=== PATIENT | female | born 1965 | race Caucasian/White ===

== ENCOUNTER 2025-02-05 10:38 | Outpatient (AMB) | payer OTHER, SELFPAY ==
--- NOTE | 2025-02-05 11:04 | MHC.PC.OV ---
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 Intake Note: New patient visit Medication List - Last Reconciled 02/05/25 by Kaye Matias MD albuterol sulfate 90 mcg/actuation (Ventolin HFA) 2 puffs inhalation Q4H PRN alendronate 70 mg PO QWEEK sumatriptan succinate (Imitrex) take 1 tab at onset of headache; if no relief, may repeat 1 tab after at least 2 hrs; max = 2 tabs/24 hrs PO Tobacco use date assessed: 02/05/25 Dental Screening Dental Screen Date: 02/05/25 Did you have a dental visit in the last 12 months?: Yes Did you have a dental problem in the last 6 months where you did not have access to dental care?: No Was dental information given to patient?: Patient has dentist HPI HPI Comments History of Present Illness Details The patient is a 59 year old female with a past medical history of osteoporosis, hyperlipidemia, hypertension, GARCIA, asthma presenting for follow up Recent labs 12/2024 with LDL 170. Echo tomorrow. Coronary CT upcoming. Denies chest pain Osteoporosis: On fosamax Headaches: Rare use of imitrex Asthma: well controlled. rare albuterol. does need updated inhaler Colonoscopy UTD-due 2026 Mammo ordered [employer]DER-Dr Yash SOLORZANO CONSTITUTIONAL: Denies weight loss, fever and chills. HEENT: Denies changes in vision and hearing. RESPIRATORY: Denies SOB and cough. CV: Denies palpitations and CP GI: Denies abdominal pain, nausea, vomiting and diarrhea. : Denies dysuria and urinary frequency. MSK: Denies new myalgia and joint pain. SKIN: Denies rash and pruritus. NEUROLOGICAL: Denies headache PSYCHIATRIC: Denies recent changes in mood. PHYSICAL EXAM: GENERAL: Alert and oriented x 3. NAD EYES: EOMI. Anicteric. HENT: Moist mucous membranes. No scleral icterus. No cervical lymphadenopathy. LUNGS: Clear to auscultation bilaterally. CARDIOVASCULAR: Regular rate and rhythm. No murmur. No JVD. ABDOMEN: Soft, non-tender +bs EXTREMITIES: No edema. Non-tender. SKIN: No rashes or lesions. Warm. NEUROLOGIC: No focal neurological deficits. CN II-XII grossly intact PSYCHIATRIC: Cooperative. 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 1. Little interest or pleasure in doing things: not at all 2. Feeling down, depressed, or hopeless: not at all 3. Trouble falling or staying asleep, or sleeping too much: not at all 4. Feeling tired or having little energy: not at all 5. Poor appetite or overeating: not at all 6. Feeling bad about yourself - or that you are a failure or have let yourself or your family down: not at all 7. Trouble concentrating on things, such as reading the newspaper or watching television: not at all 8. Moving or speaking so slowly that other people could have noticed. Or the opposite - being so fidgety or restless that you have been moving around a lot more than usual: not at all 9. Thoughts that you would be better off or of hurting yourself in some way: not at all Total score: 0 Depression Screening Interpretation: Negative Depression Screening Done: Yes 36388 - PHQ-9 Billing: Yes Source: Developed by Drs. Shahid Lindquist, Ry Lara and colleagues, with an educational gisele from [employer]. Thrive Questionnaire Date Thrive assessed: 02/02/25 I am a: Patient What is your living situation today?: I have a steady place to live Within the past 12 months, did the food you bought not last and you didn't have the money to get more?: Never true Within the past 12 months, did you worry whether your food would run out before you got money to buy more?: Never true Do you have trouble paying for medicines?: No Do you have trouble getting transportation to medical appointments?: No Do you have trouble paying your heating and electricity bill?: No Do you have trouble taking care of your child, family member or friend?: No Do you have trouble with day-to-day activities such as bathing, preparing meals, shopping, managing finances, etc.?: No Are you currently unemployed and looking for a job?: No Are you interested in more education?: No Please select the resources that you would like help with: None Currently or been in a relationship where the following occur: No concerns reported THRIVE Score: 0 AUDIT C Alcohol Use Questionnaire (AUDIT-C) 1. How often do you have a drink containing alcohol?: 2-4 times a month 2. How many drinks containing alcohol do you have on a typical day when you are drinking?: 1 or 2 3. How often do you have six or more drinks on one occasion?: Never Total Score: 2 MELY-7 AMB Questionnaire MELY-7 Date MELY - 7 assessed: 02/05/25 Feeling nervous, anxious, or on edge: 1 = Several days Not being able to stop or control worryin = Not at all Worrying too much about different things: 0 = Not at all Trouble relaxin = Not at all Being so restless that it is hard to sit still: 0 = Not at all Becoming easily annoyed or irritable: 0 = Not at all Feeling afraid as if something awful might happen: 0 = Not at all Total MELY-7 score (0-4 normal; 5-9 mild; 10-14 moderate; 15-21 severe): 1 Source: Developed by Drs. Shahid Lindquist, Ry Lara and colleagues, with an educational gisele from [employer]. MELY-7 Assessment Billing MELY-7 Assessment Tool: MELY-7 Assessment 87942 Physical exam (Primary Care) Vital Signs: Last Vital Signs Pulse 83 02/05/25 11:09 Resp 14 02/05/25 11:09 BP 126/88 02/05/25 11:09 Pulse Ox 98 02/05/25 11:09 Oxygen Delivery Method Room Air 02/05/25 11:09 BMI result Body Mass Index 27.3 Tobacco/Smoking Status: Tobacco use Status Tobacco use date assessed 02/05/25 02/05/25 11:12 Patient Tobacco Use Status Never used Tobacco 02/05/25 11:18 e-Cigarette/Vaping Use Never Used 02/05/25 11:12 PHQ-9: PHQ-9 Score PHQ-9: Total score 0 02/05/25 11:20 Depression Screening Interpretation: Negative Thrive Assessment: Date of Thrive Assessment Date Thrive assessed 02/02/25 02/05/25 11:05 Currently or been in a relationship where the following occur: No concerns reported Coding Level of Care Code Est Pt Level 4 (15424) Diagnoses Hyperlipidemia, unspecified hyperlipidemia type E78.5 Hyperlipidemia type: unspecified Mild intermittent asthma without complication J45.20 Asthma complication type: uncomplicated Additional Codes MELY-7 Assessment Billing - MELY-7 Assessment Tool: MELY-7 Assessment 86190 ([id number]) PHQ-9 - 07116 - PHQ-9 Billing: Yes ([id number]) Assessment & Plan Assessment & Plan (1) Hyperlipidemia: Code(s): E78.5 - Hyperlipidemia, unspecified Category: Medical Qualifiers: Hyperlipidemia type: unspecified Qualified Code(s): E78.5 - Hyperlipidemia, unspecified (2) Mild intermittent asthma: Code(s): J45.20 - Mild intermittent asthma, uncomplicated Category: Medical Qualifiers: Asthma complication type: uncomplicated Qualified Code(s): J45.20 - Mild intermittent asthma, uncomplicated Plan 59 year old to reestablish care Interval history reviewed Chronic medical conditions stable Due for mammo-ordered. Follow up for CPE Orders: Orders MM screening mammo BI Today Z12.31 - Encounter for screening mammogram for malignant neoplasm of breast Medications: New albuterol sulfate 90 mcg/actuation (Ventolin HFA) 2 puffs inhalation Q4H PRN 8.5 grams 3RF shortness of breath or wheezing
[2025-02-05 11:09] VITALS: BP 126/88; PULSE 83; RESP 14; O2SAT 98; BMI 27.3
--- OUTSIDE RECORDS SUMMARY | 2025-02-05 12:47 | XMS_ITS | Patient Health Record ---
[facility] Address [address] [place] [address] Care Team Providers Care Web Content Producer Name Role Phone Kaye Crowley MD Primary Care Provider Nieves Rojas Unavailable [phone] Allergies No Known Allergies Reason For Referral No Information Medications Medication SIG (Take, Route, Frequency, Duration) Notes Start Date End Date Status Robaxin Not-Taking Imitrex Active Feldene 20 MG 1 capsule with food Orally Once a day for 30 day(s) 12/30/2020 Not-Taking Diclofenac Sodium 50 MG 1 tablet Orally Twice a day for 30 day(s) 05/05/2021 Not-Taking Immunizations Vaccine Route Administration Date Status Comme nts COVID-19 Pfizer BioNTech Vaccine Unknown 11/09/2020 Administered Second Dose: 12/02/2020 COVID-19 Pfizer BioNTech Vaccine Unknown 11/11/2020 Administered Social History Tobacco Use: Social History Observation Description Date Details (start date - stop date) Never Smoker NA - NA Tobacco Use/Smoking Question Answer Notes Are you a: nonsmoker Additional Findings: Tobacco Non-User Aggressive non-smoker Alcohol Screen Question Answer Notes Did you have a drink containing alcohol in the p ast year? Yes Points 0 Interpretation Negative Tobacco use other than smoking: Question Answer Notes Are you an other tobacco user? 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) Active confirmed Plan Of Treatment Pending Test Test Name Order Date 39108, J0702- Neuroma/Injection 02/19/20 27020, J0702- Neuroma/Injection 04/07/20 08524, J0702- Neuroma/Injection 05/05/20 Insurance Providers Payer Name Payer Address Payer Phone Subscriber Number Group Number Insured Name Patient Relationship to Insured Coverage Start Date Coverage End Date [facility] [address] [place] [id number] Jillian Kennedy Self - patient is the insured Medical (General) History Medical History History ICD Code asthma Headaches Lyme disease Measles Mumps Chicken pox Surgical History Surgery Date(Month/Year)
--- OUTSIDE RECORDS SUMMARY | 2025-02-05 12:47 | XMS_ITS | Clinical Summary ---
Author Organization [facility] Address [address] [place] [address] Care Team Providers Care Health Inspector Name Role Phone Kaye Matias MD Primary Care Provider [phone] Social History Tobacco Use Types Packs/Day Years Used Date Smoking Tobacco: Never Smokeless Tobacco: Never Alcohol Use Standard Drinks/Week Comments Yes 0 (1 standard drink = 0.6 oz pur e alcohol) Comments Unknown Sex and Gender Information Value Date Recorded Sex Assigned at Not on file Legal Sex Female 6:28 PM EST Gender Identity Not on file Sexual Orientation Not on file Obstetrics History Last Filed Vital Signs Vital Sign Reading Time Taken Comments Blood Pressure 112/81 02/03/2023 7:57 AM EDT Sit ting L Arm Pulse 81 02/03/2023 7:57 AM EDT Temperature - - Respiratory Rate - - Oxygen Saturation - - Inhaled Oxygen Concentration - - Weight 79.8 kg (176 lb) 02/03/2023 7:57 AM EDT Height - - Body Mass Index - - Plan of Treatment Health Maintenance Due Date Last Done Comments DTaP,Tdap,and Td Vaccines (1 - Tdap) 1982 Cervical Cancer Screening: Pap Smear 1984 Pneumococcal Vaccine: 50+ Years (1 of 1 - PCV) 2013 Zoster Vaccines (1 of 2) 2013 Colorectal Cancer Screening: Colonoscopy 10/27/2022 Depression Screening 10/27/2022 HIV Screening 10/27/2022 Hepatitis C Screening 10/27/2022 Social Influencers of Health Screening 10/27/2022 COVID-19 Vaccine ( season) 2024 Influenza Vaccine (#1) 2024 Breast Cancer Screening 03/02/2026 03/02/20 24, 10/27/2022, 10/01/2021, Additional history exists RSV Immunization Patients 60+ Years Old (1 - 1-dose 75+ series) 2038 HIB Vaccines Aged Out No longer eligi ble based on patient's age to complete this topic HPV Vaccines Aged Out No longer eligi ble based on patient's age to complete this topic Hepatitis A Vaccines Aged Out No long er eligible based on patient's age to complete this topic Hepatitis B Vaccines Aged Out No long er eligible based on patient's age to complete this topic IPV Vaccines Aged Out No longer eligi ble based on patient's age to complete this topic MMR Vaccines Aged Out No longer eligi ble based on patient's age to complete this topic Meningococcal ACWY Vaccine Aged Out N o longer eligible based on patient's age to complete this topic Meningococcal B Vacine Aged Out No lo nger eligible based on patient's age to complete this topic Pneumococcal Vaccine: Pediatrics (0 to 5 Years) and At-Risk Patients (6 to 64 Years) Aged Out No longer eligible based on patient's age to complete this topic RSV Immunization Patients Under 20 months Aged Out No longer eligible based on patient's age to complete this topic Varicella Vaccines Aged Out No longer eligible based on patient's age to complete this topic Procedures Procedure Name Priority Date/Time Associated Diagnosis Comments [facility] SCREENING DIGITAL Routine 03/02/2024 1:08 PM EDT Encounter for screening mammogram for malignant neoplasm of breast from Last 3 Months or Most Recently Relevant to Health Maintenance Results * [facility] SCREENING DIGITAL (03/02/2024 1:08 PM EDT) Anatomical Region Laterality Modality Mammography 03/02/2024 7:49 AM EDT Narrative 03/02/2024 1:08 PM EDT [facility] Diagnostic Imaging Department [address] [place] [id number] Patient: ??JILLIAN KENNEDY ?/Age/Sex: 1965 - 58 - F Unit#: ??[id number] ? Location/Status: ??SPDIMAM/REG CLI ? Mnemonic/Ordering Site: ??DIGSC/SPMAM Ordering Physician: ??FELIPE VANESSA MD [facility] Screening Digital - 03/02/24 - 803 Report Status:Signed EXAM: [facility] Screening Digital EXAM DATE AND TIME: 03/02/2024 8:05 AM HISTORY: ??Screening. COMPARISON: ??10/27/22, 10/01/21, 06/08/18 TECHNIQUE: Bilateral digital breast tomosynthesis was performed in the CC and MLO projections. Computer aided detection with PPLCONNECT 3D 3.1 was employed. TISSUE DENSITY: c. The breasts are heterogeneously dense, which may obscure small masses. FINDINGS: No suspicious masses, grouped microcalcifications, or areas of architectural distortion are seen. The skin and vascularity are unremarkable. IMPRESSION: Stable mammographic appearance of the breasts. ??No evidence of malignancy is seen. A negative mammogram in the presence of a clinically suspicious palpable abnormality does not preclude the possibility of malignancy or alter the indications for biopsy. BI-RADS: ??Category 1: Negative RECOMMENDATION(S): 1: Routine screening mammogram BILATERAL in 1 year. Dictating Physician: ??SHARI BENNETT MD Electronically Signed by: ??SHARI BENNETT MD Dic Date/Time: ??03/02/24 1307 Sign date/Time: ??03/02/24 1308 Procedure Note Shari Bennett MD - 07/02/2024 [facility] Diagnostic Imaging Department [address] [place] [address] Patient: JILLIAN KENNEDY Raul /Age/Sex: 1965 - 58 - F Unit#: [id number] Location/Status: SPDIMAM/REG CLI Mnemonic/Ordering Site: [facility] Ordering Physician: FELIPE VANESSA MD [facility] Screening Digital - 03/02/24 - 0804 Report Status:Signed EXAM: [facility] Screening Digital EXAM DATE AND TIME: 03/02/2024 8:05 AM HISTORY: Screening. COMPARISON: 10/27/22, 10/01/21, 06/08/18 TECHNIQUE: Bilateral digital breast tomosynthesis was performed in the CCand MLO projections. Computer aided detection with PPLCONNECT 3D 3.1was employed. TISSUE DENSITY: c. The breasts are heterogeneously dense, which mayobscure small masses. FINDINGS: No suspicious masses, grouped microcalcifications, or areas ofarchitectural distortion are seen. The skin and vascularity are unremarkable. IMPRESSION: Stable mammographic appearance of the breasts. No evidence of malignancyis seen. A negative mammogram in the presence of a clinically suspicious palpable abnormality does not preclude the possibility of malignancy or alter the indications for biopsy. BI-RADS: Category 1: Negative RECOMMENDATION(S): 1: Routine screening mammogram BILATERAL in 1 year. 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
--- OUTSIDE RECORDS SUMMARY | 2025-02-05 12:47 | XMS_ITS | Clinical Summary ---
Author Organization [facility] [employer] [facility] Address [address] [facility] [address] [place] [address] Care Team Providers Care Position Classifier Name Role Phone Unavailable Primary Care Provider Unavailabl e Social History Tobacco Use Types Packs/Day Years Used Date Smoking Tobacco: Never Assessed Comments Unknown Sex and Gender Information Value Date Recorded Sex Assigned at Not on file Legal Sex Female 10:23 PM EST Gender Identity Not on file Sexual Orientation Not on file Plan of Treatment Health Maintenance Due Date Last Done Comments Colorectal Cancer: COLONOSCO PY Screening every 10 yrs (or Modifier) 1965 Depression: Screening Annual ly using PHQ-2/9 in Adults 18 yrs or above (or HM Modifier)([facility]) 1981 Hepatitis C Virus Infection in Adolescents and Adults: Screening (or Modifier) ([facility]) 1981 SDDC Screening Reminder: Phoebe morton for all adults ([facility]) 1981 Tobacco Smoking Cessation: i n Adults excluding Women: Behavioral and Pharmacotherapy Interventions ([facility]) 1981 DTaP/Tdap/Td Vaccines ([facility]) (1 - Tdap) 1982 Cervical Cancer Screenin 1-65 yrs of age (or Modifier) 1984 Cervical Cancer Screening: P ap every 3 yrs pts age 21-65 1984 Cervical Cancer: Pap Screeni ng with Modifier timing ([facility]) 1984 Cervical Cancer: hrHPV alone or with cotesting Pap for Pts 30-65yrs screening every 5yrs ([facility]) 1984 Colorectal Cancer Screening 45 -75 Yrs (or HM Modifier) 2008 Colorectal Cancer: FLEXIBLE SIGMOIDOSCOPY Screening every 5 yrs 2008 Colorectal Cancer: Fecal Immunochemical Test (FIT) Annually [facility] 2008 Colorectal Cancer: High-sens itivity gFOBT Screening Annually [facility] 2008 Colorectal Cancer: Stool Col oguard Screening every 3 yrs 2008 Colorectal Cancer:CT Colonog trniy Screening every 5 yrs 2008 Lipid Screening: Every 5 yrs for Women aged 45+ (or HM Modifier) ([facility]) 2009 Breast Cancer: Screening Phoebe ually age 50-74 yrs (or HM Modifier)([facility]) 2013 Zoster/Shingles Vaccine Seri es Screening: Adults aged 18+ yrs (or HM Modifiers)([facility]) (1 of 2) 2013 Flu Vaccination: Yearly for ages 18mos through 64 years (or Modifier)([facility]) 06/14/2024 COVID-19 Vaccine Screening: Initial Series and Booster Status ([facility]) (2023- season) 2024 RSV Vaccines (1 - 1-dose 75+ series) 2038 Pneumococcal Vaccination Scr eening: Pts 0-19 & 19-64 yrs of age ([facility]) Aged Out No longer eligible based on patient's age to complete this topic Medical Devices [place] [id number] [facility]
== END 2025-02-05 11:35 | disposition home or self-care (01) ==
LOC: HO.HMCFM 10:39
PROVIDERS: PCP Internal Medicine; Visit Provider Internal Medicine
DX: E78.5 Hyperlipidemia, unspecified (principal); J45.20 Mild intermittent asthma, uncomplicated

== ENCOUNTER → 2025-02-05 10:38 | Outpatient (BNVA) | payer OTHER, SELFPAY | PROVIDERS: PCP Internal Medicine; Visit Provider Internal Medicine | DX: M81.0 Age-related osteoporosis without current pathological fracture (principal); E78.5 Hyperlipidemia, unspecified; I10 Essential (primary) hypertension; J45.20 Mild intermittent asthma, uncomplicated | CPT/HCPCS: 96127 ==

== ENCOUNTER 2025-06-17 14:34 | Outpatient (AMB) | payer OTHER, SELFPAY ==
--- OUTSIDE RECORDS SUMMARY | 2025-06-17 14:37 | XMS_ITS | Clinical Summary ---
Author Organization [facility] Address [address] [place] [phone] Phone Care Team Providers Care Group Sales Manager Name Role Phone Kaye Matias MD Primary Care Provider [phone] Allergies No known active allergies Medications No known medications Social History Tobacco Use Types Packs/Day Years Used Date Smoking Tobacco: Never Smokeless Tobacco: Never Alcohol Use Standard Drinks/Week Comments Yes 0 (1 standard drink = 0.6 oz pur e alcohol) Comments No Sex and Gender Information Value Date Recorded Sex Assigned at Female 02/12/2025 1:49 PM EDT Legal Sex Female 6:28 PM EST Gender Identity Female 02/12/2025 1:49 PM EDT Sexual Orientation Choose not to disclose 2024 1:49 PM EDT Obstetrics History Para Term AB IAB SAB Ectopic Multiple Livin g Live Births 2 Last Filed Vital Signs Vital Sign Reading Time Taken Comments Blood Pressure 153/73 02/17/2025 10:15 AM EDT Pulse 73 02/17/2025 10:15 AM EDT Temperature 37 C (98.6 F) 02/17/2025 8:16 AM EDT Respiratory Rate 18 02/17/2025 10:15 AM EDT Oxygen Saturation 99% 02/17/2025 10:15 AM EDT Inhaled Oxygen Concentration - - Weight 77.1 kg (170 lb) 03/08/2025 7:23 AM EDT Height 175.3 cm (5' 9 ) 03/08/2025 7:23 AM EDT Body Mass Index 25.1 03/08/2025 7:23 AM EDT Plan of Treatment Health Maintenance Due Date Last Done Comments Pneumococcal Vaccine: 50+ Years (1 of 2 - PCV) 1982 Cervical Cancer Screening: Pap Smear 1984 Cholesterol Screening (Lipid Panel) 10/27/2022 Colorectal Cancer Screening: Colonoscopy 10/27/2022 HIV Screening 10/27/2022 Hepatitis C Screening 10/27/2022 Social Influencers of Health Screening 10/27/2022 RSV Immunization Adult Patients (1 - Risk 60-74 years 1-dose series) 2023 COVID-19 Vaccine ( season) 2024 11/02/2023, 08/10/2021, 12/02/2020, Additional history exists Depression Screening 11/14/2024 Influenza Vaccine (#1) 2025 , 08/18/2022, 09/01/2021, Additional history exists Hypertension/CHF/CAD Annual BMP Blood Test 02/17/2026 02/17/2025 Breast Cancer Screening 03/08/2027 03/08/20, 03/02/2024, 10/27/2022, Additional history exists DTaP,Tdap,and Td Vaccines (2 - Td or Tdap) 03/08/2033 03/08/2023 Zoster Vaccines Completed 09/02/2022, 03/27/2022 HIB Vaccines Aged Out No longer eligi [...] age to complete this topic Meningococcal B Vaccine Aged Out No l onger eligible based on patient's age to complete this topic RSV Immunization Patients Under 20 months Aged Out No longer eligible based on patient's age to complete this topic Varicella Vaccines Aged Out No longer eligible based on patient's age to complete this topic Procedures Procedure Name Priority Date/Time Associated Diagnosis Comments MG MAMMO DIGITAL SCREENING W LAMONT BILAT Routine 03/08/2025 7:41 AM EDT Encounter for screening mammogram for malignant neoplasm of breast COMPREHENSIVE METABOLIC PANEL STAT 02/17/2025 8:35 AM EDT from Last 3 Months or Most Recently Relevant to Health Maintenance Results * MG Mammo Digital Screening w Lamont bilat (03/08/2025 7:41 AM EDT) Anatomical Region Laterality Modality Breast Bilateral Mammography 03/08/2025 8:02 AM EDT Impressions 03/08/2025 8:06 AM EDT No mammographic evidence of malignancy. TISSUE DENSITY: The breasts are heterogeneously dense, which may obscure small masses. (BI-RADS category C) IMPRESSION: Benign. BI-RADS CATEGORY: 1 - NEGATIVE RECOMMENDATION: Screening bilateral mammogram is recommended in 1 year. Mammo Location: [facility], [address] [place] [address] -------- FINAL REPORT -------- Dictated By: Orestes Cole Dictated Date: 03/08/2025 08:02 ET Assigned Physician: Orestes Cole Reviewed and Electronically Signed By: Orestes Cole Signed Date: 03/08/2025 08:06 ET Workstation ID: [id number] Transcribed By: Self Edit Transcribed Date: 03/08/2025 08:02 ET Narrative 03/08/2025 8:06 AM EDT CLINICAL: The patient is a 59 years Female presenting for routine screening mammography. COMPARISON: Most recently 03/02/2024 and most remotely 06/08/2018. TECHNIQUE: Full-field digital mammography of the breasts bilaterally consisting of tomosynthesis in MLO and CC projection is performed in the [employer] 2000-D unit. Computer aided detection utilizing the Amitree[employer] system was utilized. FINDINGS: The breasts are again seen to be composed of a combination of fatty and moderately dense fibroglandular elements. There is no cluster of microcalcifications, mass, or area of architectural distortion. There is no skin thickening or nipple retraction. Procedure Note Orestes Cole MD - 03/08/2025 CLINICAL: The patient is a 59 years Female presenting for routinescreening mammography. COMPARISON: Most recently 03/02/2024 and most remotely 06/08/2018. TECHNIQUE: Full-field digital mammography of the breasts bilaterallyconsisting of tomosynthesis in MLO and CC projection is performed in the[employer] 2000-D unit. Computer aided detection utilizing the [employer] was utilized. FINDINGS: The breasts are again seen to be composed of a combination offatty and moderately dense fibroglandular elements. There is no clusterof microcalcifications, mass, or area of architectural distortion. Thereis no skin thickening or nipple retraction. IMPRESSION: No mammographic evidence of malignancy. TISSUE DENSITY: The breasts are heterogeneously dense, which may obscuresmall masses. (BI-RADS category C) IMPRESSION: Benign. BI-RADS CATEGORY: 1 - NEGATIVE RECOMMENDATION: Screening bilateral mammogram is recommended in 1 year. Mammo Location: [facility], [address] [place] [id number] -------- FINAL REPORT -------- Dictated By: Orestes Cole Dictated Date: 03/08/2025 08:02 ET Assigned Physician: Orestes Cole Reviewed and Electronically Signed By: Orestes Cole Signed Date: 03/08/2025 08:06 ET Workstation ID: [id number] Transcribed By: Self Edit Transcribed Date: 03/08/2025 08:02 ET us Kaye Matias MD IMG BI PROCEDURES Final Result * (ABNORMAL) Comprehensive metabolic panel (02/17/2025 8:35 AM EDT) Sodium 144 135 - 145 mmol/L LAB CHEMISTRY METHOD 02/17/2025 9:13 AM EDT [facility] Potassium 3.7 3.5 - 5.1 mmol/L LAB CHEMISTRY METHOD 02/17/2025 9:13 AM EDT [facility] Chloride 109(H) 98 - 107 mmol/L LAB CHEMISTRY METHOD 02/17/2025 9:13 AM [facility] CO2 24 24 - 32 mmol/L LAB CHEMISTRY METHOD 02/17/2025 9:13 AM [facility] Anion Gap 11 5 - 14 LAB CHEMISTRY METHOD 02/17/2025 9:13 AM [facility] Glucose 95 70 - 199 mg/dL LAB CHEMISTRY METHOD 02/17/2025 9:13 AM [facility] BUN 18(H) 7 - 17 mg/dL LAB CHEMISTRY METHOD 02/17/2025 9:13 AM [facility] Creatinine 0.81 0.50 - 1.00 mg/dL LAB CHEMISTRY METHOD 02/17/2025 9:13 AM [facility] eGFR 83 >=60 mL/min/1. 73m2 LAB CHEMISTRY METHOD 02/17/2025 9:13 AM [facility] Comment:Calculation based on the Chronic Kidney Disease Epidemiology Collaboration (CKD-EPI) equation refit without adjustment for race. BUN/Creatinine Ratio 22.2(H) 12.0 - 20.0 LAB CHEMISTRY METHOD 02/17/2025 9:13 AM [facility] Calcium 9.1 8.4 - 10.2 mg/dL LAB CHEMISTRY METHOD 02/17/2025 9:13 AM [facility] AST (SGOT) 16 5 - 40 unit/L LAB CHEMISTRY METHOD 02/17/2025 9:13 AM [facility] ALT (SGPT) 15 7 - 52 unit/L LAB CHEMISTRY METHOD 02/17/2025 9:13 AM [facility] Alkaline Phosphatase 48 34 - 104 unit/L LAB CHEMISTRY METHOD 02/17/2025 9:13 AM [facility] Total Protein 7.1 6.4 - 8.5 g/dL LAB CHEMISTRY METHOD 02/17/2025 9:13 AM EDT [facility] Albumin 4.0 3.5 - 5.0 g/dL LAB CHEMISTRY METHOD 02/17/2025 9:13 AM EDT [facility] Total Bilirubin 0.3 0.3 - 1.0 mg/dL LAB CHEMISTRY METHOD 02/17/2025 9:13 AM EDT [facility] Blood Venous blood specimen / Unknown Venipuncture / Unknown 02/17/2025 8:35 AM EDT 02/17/2025 8:39 AM EDT us Kamlesh Fields MD LAB BLOOD ORDERABLES Final Resu lt [facility] [address] [place] [address], [place] [phone] from Last 3 Months or Most Recently Relevant to Health Maintenance Insurance [facility] Advance Directives Documents on File Type Date Recorded Patient Network Strategist Expl anation Health Care Decision (hx) 07/21/2021 AD DEE DIRECTIVE Health Care Decision (hx) 07/21/2021 AD DEE DIRECTIVE Health Care Decision (hx) 07/21/2021 AD DEE DIRECTIVE Health Care Decision (hx) 07/21/2021 AD DEE DIRECTIVE Health Care Decision (hx) 07/21/2021 AD DEE DIRECTIVE Health Care Decision (hx) 07/21/2021 AD DEE DIRECTIVE Health Care Decision (hx) 07/21/2021 AD DEE DIRECTIVE Care Teams Group Sales Manager Relationship Specialty Start Date End Date Kaye Matias MD [address] [place] [phone] PCP - General 01/31/23
--- OUTSIDE RECORDS SUMMARY | 2025-06-17 14:37 | XMS_ITS | Patient Health Record ---
Author Organization [facility] Address [address] [facility] [place] [address] Care Team Providers Care Crop Adjuster Name Role Phone Kaye Crowley MD Primary Care Provider Nieves Rojas Unavailable [phone] Allergies No Known Allergies Reason For Referral No Information Medications Medication SIG (Take, Route, Frequency, Duration) Notes Start Date End Date Status Robaxin Not-Taking Imitrex Active Feldene 20 MG 1 capsule with food Orally Once a day; Duration: 30 day(s) 12/30/2020 Not-Taking Diclofenac Sodium 50 MG 1 tablet Orally Twice a day; Duration: 30 day(s) 05/05/2021 Not-Colt ing Immunizations Vaccine Route Administration Date Status Comme [...] Problem Acquired hammer toe of right foot ([id number] 9105) Other hammer toe(s) (acquired), right foot (M20.41) Active confirmed Problem Plantar nerve lesion (069661289) Lesion of plantar nerve, 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 Problem 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) Active confirmed Plan Of Treatment Pending Test Test Name Order Date 49516, J0702- Neuroma/Injection 02/19/20 81439, J0702- Neuroma/Injection 04/07/20 27662, J0702- Neuroma/Injection 05/05/20 Insurance Providers Payer Name Payer Address Payer Phone Subscriber Number Group Number Insured Name Patient Relationship to Insured Coverage Start Date Coverage End Date [facility] (Replaced By [facility]) [address] [place] [id number] Jillian Kennedy Self - patient is the insured Medical (General) History Medical History History ICD Code asthma Headaches Lyme disease Measles Mumps Chicken pox Surgical History Surgery Date(Month/Year)
--- OUTSIDE RECORDS SUMMARY | 2025-06-17 14:37 | XMS_ITS | Clinical Summary ---
Author Organization [facility] Address [address] [facility] [place] [address] Care Team Providers Care Landscape Architecture Professor Name Role Phone Unavailable Primary Care Provider [...] Adults 18 yrs or above (or HM Modifier)([facility]) 1981 Hepatitis C Virus Infection in Adolescents and Adults: Screening (or Modifier) ([facility]) 1981 SDNH Screening Reminder: Phoebe morton for all adults ([facility]) 1981 Tobacco Smoking Cessation: i n Adults excluding Women: Behavioral and Pharmacotherapy Interventions ([facility]) 1981 DTaP/Tdap/Td Vaccines ([facility]) (1 - Tdap) 1982 Cervical Cancer Screenin 1-65 yrs of age (or Modifier) 1984 Cervical Cancer Screening: P ap every 3 yrs pts age 21-65 1984 Cervical Cancer: Pap Screeni ng with Modifier timing ([facility]) 1984 Cervical Cancer: hrHPV alone or with cotesting Pap for Pts 30-65yrs screening every 5yrs ([facility]) 1984 Colorectal Cancer Screening 45 -75 Yrs (or HM Modifier ) 2008 Colorectal Cancer: FLEXIBLE SIGMOIDOSCOPY Screening every 5 yrs 2008 Colorectal Cancer: Fecal Imm unochemical Test (FIT) Annually [facility] 2008 Colorectal Cancer: High-sens itivity gFOBT Screening Annually [facility] 2008 Colorectal Cancer: Stool Col oguard Screening every 3 yrs 2008 Colorectal Cancer:CT Colonography Screening every 5 yr s 2008 Breast Cancer: Screening Phoebe ually age 50-74 yrs (or HM Modifier)([facility]) 2013 Pneumococcal Vaccination Scr eening: Patients 50+ yrs of age ([facility]) (1 of 1 - PCV) 2013 Zoster/Shingles Vaccine Seri es Screening: Adults aged 18+ yrs (or HM Modifiers)([facility]) (1 of 2) 2013 COVID-19 Vaccine Screening: Initial Series and Booster Status ([facility]) (2023- season) 2024 Flu Vaccination: Yearly for ages 18mos through 64 years (or Modifier)([facility]) 06/14/2025 RSV Vaccines (1 - 1-dose 75+ series) 2038 [employer] [place] [id number] [facility]
--- OUTSIDE RECORDS SUMMARY | 2025-06-17 14:37 | XMS_ITS ---
Author Name [facility] Organization Unknown Results Test Name/Text Value Interpretation Date Range Source Ketones Ur-mCnc Negative Normal 02/17/2025 - [place] Color Ur Yellow Normal 02/17/2025 - [facility] Prot Ur Strip-mCnc Negative Normal 02/17/2025 - [facility] pH Ur 5.5 pH Normal 02/17/2025 5 - 8 [facility] Clarity Ur Clear Normal 02/17/2025 - [facility] Nitrite Ur Ql Negative Normal 02/17/2025 - [facility] Sp Gr Ur 1.025 Normal 02/17/2025 1.005 - 1.03 [facility] Glucose Ur Ql Negative Normal 02/17/2025 - [facility] Leukocyte esterase Ur Ql Strip Negative Normal 02/17/2025 - [facility] Hgb Ur Ql Negative Normal 02/17/2025 - [facility] ABO Group Bld A Normal 02/17/2025 [facility] Rh Bld Positive Normal 02/17/2025 [facility] Bld gp Ab Scn SerPl Ql Negative Normal 02/17/2025 [facility] Bilirub SerPl-mCnc 0.3 mg/dL Normal 02/17/2025 0.3 - 1 [facility] BUN SerPl-mCnc 18.0 mg/dL Above high normal 02/17/2025 7 - 1 7 [facility] BUN/Creat SerPl 22.2 Above high normal 02/17/2025 12 - 20 [facility] Glucose SerPl-mCnc 95.0 mg/dL Normal 02/17/2025 70 - 199 [facility] eGFRcr SerPlBld CKD-EPI 2020 83.0 mL/min/1.73m2 Normal 02/17/2025 - [facility] Prot SerPl-mCnc 7.1 g/dL Normal 02/17/2025 6.4 - 8.5 [facility]_ [facility] Sodium SerPl-sCnc 144.0 mmol/L Normal 02/17/2025 135 - 14 5 [facility] CO2 SerPl-sCnc 24.0 mmol/L Normal 02/17/2025 24 - 32 CT _[facility] Calcium SerPl-mCnc 9.1 mg/dL Normal 02/17/2025 8.4 - 10.2 [facility] ALT SerPl-cCnc 15.0 unit/L Normal 02/17/2025 7 - 52 CT [facility] Chloride SerPl-sCnc 109.0 mmol/L Above high normal 5 98 - 107 [facility] Albumin SerPl-mCnc 4.0 g/dL Normal 02/17/2025 3.5 - 5 [facility] Creat SerPl-mCnc 0.81 mg/dL Normal 02/17/2025 0.5 - 1 C T_[facility] AST SerPl-cCnc 16.0 unit/L Normal 02/17/2025 5 - 40 CT _[facility] Potassium SerPl-sCnc 3.7 mmol/L Normal 02/17/2025 3.5 - 5.1 CT_[facility] Anion Gap SerPl-sCnc 11.0 Normal 02/17/2025 5 - 14 [facility] ALP SerPl-cCnc 48.0 unit/L Normal 02/17/2025 34 - 104 CT _[facility] Magnesium SerPl-mCnc 1.7 mg/dL Normal 02/17/2025 1.7 - 2.8 CT_[facility] INR PPP 0.9 Normal 02/17/2025 0.8 - 1.1 [facility] PT Bld 11.3 sec Normal 02/17/2025 10.5 - 13.3 CT_[facility] H aPTT PPP 29.0 sec Normal 02/17/2025 25 - 37 [facility] Hgb Bld-mCnc 14.0 g/dL Normal 02/17/2025 12.5 - 16 [facility] Neutrophils/leuk NFr Bld Auto 55.0 % Normal 02/17/2025 44 - 74 [facility] Basophils/leuk NFr Bld Auto 0.8 % Normal 02/17/2025 0 - 2 [facility] WBC # Bld Auto 5.9 K/mcL Normal 02/17/2025 4 - 10.5 CT_[facility] Monocytes/leuk NFr Bld Auto 7.1 % Normal 02/17/2025 2 - 12 [facility] MCHC RBC Auto-mCnc 32.7 g/dL Normal 02/17/2025 32 - 36 [facility] RDW RBC Auto-Rto 14.0 % Normal 02/17/2025 12.1 - 16.2 [facility] MCV RBC Auto 84.4 FL Normal 02/17/2025 78 - 100 [facility] Eosinophil # Bld Auto 0.17 K/mcL Normal 02/17/2025 0 - 0.5 [facility] RBC # Bld Auto 5.07 M/mcL Normal 02/17/2025 4.2 - 5.4 CT_ [facility] MCH RBC Qn Auto 27.6 pcg Normal 02/17/2025 25 - 33 [facility]_ [facility] Hct VFr Bld Auto 42.8 % Normal 02/17/2025 37 - 47 CT _[facility] PMV Bld Auto 11.0 FL Normal 02/17/2025 7.4 - 11.4 CT_[facility]M Basophils # Bld Auto 0.05 K/mcL Normal 02/17/2025 0 - 0.2 [facility] Monocytes # Bld Auto 0.42 K/mcL Normal 02/17/2025 0 - 0.8 [facility] Neutrophils # Bld Auto 3.24 K/mcL Normal 02/17/2025 1.8 - 7.8 [facility] Eosinophil/leuk NFr Bld Auto 2.9 % Normal 02/17/2025 0 - 6 [facility] Platelet # Bld Auto 269.0 K/mcL Normal 02/17/2025 150 - 4 50 [facility] Lymphocytes # Bld Auto 2.0 K/mcL Normal 02/17/2025 1 - 3.2 [facility] Lymphocytes/leuk NFr Bld Auto 34.0 % Normal 02/17/2025 20 - 48 [facility] History of Medication Use Medication Directions Dispensed Refills Start Date End Date [facility] ciprofloxacin (CIPRO) tablet 500 mg 500 mg, oral, Once, On 02/17/25 at 1124, For 1 dose, Administer 2 hours before or after multivitamins, antacids, or other products containing polyvalent cations (i.e., calcium, iron, magnesium, selenium, zinc). IF RECEIVING ENTERAL NUTRITION: Hold tube feeds 2 hours before and 2 hours after admin 02/17/2025 02/17/2025 completed iopamidoL (ISOVUE-370) 370 mg iodine /mL (76 %) injection 100 mL 100 mL, intravenous, Once in imaging, Starting on 02/17/25 at 0937, For 1 dose 02/17/2025 02/17/2025 completed ondansetron (PF) (ZOFRAN) injection 4 mg 4 mg, intravenous, Once, On 02/17/25 at 0822, For 1 dose 02/17/2025 02/17/2025 completed sodium chloride 0.9 % bolus 1,000 mL 1,000 mL, intravenous, at 2,000 mL/hr, Administer over 30 Minutes, Once, On 02/17/25 at 0822, For 1 dose 02/17/2025 02/17/2025 completed sodium chloride 0.9 % flush 10 mL 10 mL, intravenous, Once, On 02/17/25 at 0938, For 1 dose 02/17/2025 02/17/2025 completed sodium chloride 0.9 % intravenous solution 50 mL 50 mL, intravenous, Once in imaging, Starting on 02/17/25 at 0937, For 1 dose 02/17/2025 02/17/2025 completed ciprofloxacin (CIPRO) 500 mg tablet Take 1 tablet (500 mg total) by mouth 2 (two) times a day for 7 days. 02/17/2025 active Problems Problem Status Onset Date Problem Type Date of Resolution Source Acute hemorrhagic colitis [facility] Abdominal pain, unspecified abdominal location active EncounterDiagnosisAct [facility] Encounters Encounter Type Encounter Reason Primary Diagnosis Location Date Emergency abd pain, vomiting Unspecified a bdominal pain [facility] 02/17/2025 Care Team Organization Name Specialty Phone [facility] 02/17/2025
--- NOTE | 2025-06-17 14:38 | MHC.PC.OV ---
Vital Signs 06/17/25 14:44 BMI Reason not done Patient refused/unable BP 122/88 Blood Pressure Location Lt brachial Position Sitting Respiration 12 Pulse 87 Pulse Source Pulse Oximeter Temp 97.9 F Temp Source Oral Pulse Oximetry (%) 98 Oxygen Delivery Method Room Air Intake Visit Reasons: Stomach issues Intake Note: Bloated, change in bowel movement. Went to [facility] and was diagnosed with colitis. Refill on Imitrex Showcase Trimmer Required: No Allergies No Known Allergies Allergy (Verified 06/17/25 14:42) Tobacco use date assessed: 06/17/25 Dental Screening Dental Screen Date: 02/05/25 HPI HPI Comments History of Present Illness Details The patient is a 59 year old female with a past medical history of osteoporosis, hyperlipidemia, hypertension, GARCIA, asthma presenting for follow up Patient went the ER in February for abdominal pain. [place] like prior episode of diverticulitis she had in the fall 2023. She was told she had a colitis at that time. Acute pain resolved however she has continued since that time to have a notable change in bowel movements. She is having bloating, increased bowel movements, now up to six times daily. It is non watery non bloody. No fevers or weight loss. CV: HLD. Echo 2024. Had Coronary CT. Denies chest pain. Denies exertional dyspnea Osteoporosis: On fosamax Headaches: Rare use of imitrex Asthma: well controlled. rare albuterol. Colonoscopy UTD-due 2026 Mammo ordered PIPELINE GANG SUPERVISOR-Dr Yash SOLORZANO see HPI PHYSICAL EXAM: GENERAL: Alert and oriented x 3. NAD EYES: EOMI. Anicteric. HENT: Moist mucous membranes. No scleral icterus. No cervical lymphadenopathy. LUNGS: Clear to auscultation bilaterally. CARDIOVASCULAR: Regular rate and rhythm. + murmur. No JVD. ABDOMEN: Soft, mild diffuse ttp +bs EXTREMITIES: No edema. Non-tender. SKIN: No rashes or lesions. Warm. NEUROLOGIC: No focal neurological deficits. CN II-XII grossly intact PSYCHIATRIC: Cooperative. 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 Current occupational exposures/hazards: No Cognitive needs: No Hearing needs: No Vision needs: No Questionnaire Thrive Questionnaire Date Thrive assessed: 02/02/25 I am a: Patient What is your living situation today?: I have a steady place to live Within the past 12 months, did the food you bought not last and you didn't have the money to get more?: Never true Within the past 12 months, did you worry whether your food would run out before you got money to buy more?: Never true Do you have trouble paying for medicines?: No Do you have trouble getting transportation to medical appointments?: No Do you have trouble paying your heating and electricity bill?: No Do you have trouble taking care of your child, family member or friend?: No Do you have trouble with day-to-day activities such as bathing, preparing meals, shopping, managing finances, etc.?: No Are you currently unemployed and looking for a job?: No Are you interested in more education?: No Please select the resources that you would like help with: None Currently or been in a relationship where the following occur: No concerns reported THRIVE Score: 0 MELY-7 AMB Questionnaire MELY-7 Date MELY - 7 assessed: 02/05/25 Source: Developed by Drs. Shahid Lindquist, Priya Reis, Ry Mcmullen and colleagues, with an educational gisele from [employer]. ACT Questionnaire In the past 4 weeks, how much of the time did your asthma keep you from getting as much done at work, school or at home?: None of the time During the past 4 weeks, how often have you had shortness of breath?: Not at all During the past 4 weeks, how often did your asthma symptoms wake you up at night or earlier than usual in the morning?: Not at all During the past 4 weeks, how often have you had to use your rescue inhaler or nebulizer medication?: Not at all How would you rate your asthma control during the past 4 weeks?: Completely controlled ACT Interpretation: Negative Score: 25 Physical exam (Primary Care) Vital Signs: Last Vital Signs Temp 97.9 F 06/17/25 14:44 Pulse 87 06/17/25 14:44 Resp 12 06/17/25 14:44 BP 122/88 06/17/25 14:44 Pulse Ox 98 06/17/25 14:44 Oxygen Delivery Method Room Air 06/17/25 14:44 Tobacco/Smoking Status: Tobacco use Status Tobacco use date assessed 06/17/25 06/17/25 14:43 Patient Tobacco Use Status Never used Tobacco 06/17/25 14:44 e-Cigarette/Vaping Use Never Used 06/17/25 14:44 Thrive Assessment: Date of Thrive Assessment Date Thrive assessed 02/02/25 06/17/25 14:43 Currently or been in a relationship where the following occur: No concerns reported Coding Level of Care Code Est Pt Level 4 (79059) Complex EM visit Add On G2211 Diagnoses Change in bowel movement R19.8 Mild intermittent asthma without complication J45.20 Asthma complication type: uncomplicated Hyperlipidemia, unspecified hyperlipidemia type E78.5 Hyperlipidemia type: unspecified Heart murmur R01.1 Additional Codes Asthma Control Questionnaire - ACT Interpretation: Negative ([id number]) Assessment & Plan Assessment & Plan (1) Change in bowel movement: Code(s): R19.8 - Other specified symptoms and signs involving the digestive system and abdomen Category: Medical (2) Mild intermittent asthma: Code(s): J45.20 - Mild intermittent asthma, uncomplicated Category: Medical Qualifiers: Asthma complication type: uncomplicated Qualified Code(s): J45.20 - Mild intermittent asthma, uncomplicated (3) Hyperlipidemia: Code(s): E78.5 - Hyperlipidemia, unspecified Category: Medical Qualifiers: Hyperlipidemia type: unspecified Qualified Code(s): E78.5 - Hyperlipidemia, unspecified (4) Heart murmur: Code(s): R01.1 - Cardiac murmur, unspecified Category: Medical Plan 59 year old for abdominal bloating change in bowel function, namely increased BM Labs at [facility] in February stool studies and referral to GI. She can trial metamucil Orders: Orders Calprotectin, Fecal Today R19.8 - Other specified symptoms and signs involving the digestive system and abdomen Leukocytes Stool Qualitative Today R19.8 - Other specified symptoms and signs involving the digestive system and abdomen Ova and Parasite Today R19.8 - Other specified symptoms and signs involving the digestive system and abdomen H pylori Ag Stool Today R19.8 - Other specified symptoms and signs involving the digestive system and abdomen Pancreatic Elastase-1 Today R19.8 - Other specified symptoms and signs involving the digestive system and abdomen Referrals Gastroenterology Referral R19.8 - Other specified symptoms and signs involving the digestive system and abdomen Medications: New sumatriptan succinate (Imitrex) take 1 tab at onset of headache; if no relief, may repeat 1 tab after at least 2 hrs; max = 2 tabs/24 hrs PO 30 tabs 3RF
[2025-06-17 14:44] VITALS: BP 122/88; PULSE 87; RESP 12; TEMP 36.6; O2SAT 98
== END 2025-06-17 15:08 | disposition home or self-care (01) ==
LOC: HO.HMCFM 14:35
PROVIDERS: PCP Internal Medicine; Visit Provider Internal Medicine
DX: R19.8 Other specified symptoms and signs involving the digestive system and abdomen (principal); J45.20 Mild intermittent asthma, uncomplicated; E78.5 Hyperlipidemia, unspecified; R01.1 Cardiac murmur, unspecified

== ENCOUNTER → 2025-06-17 14:34 | Outpatient (BNVA) | payer OTHER, SELFPAY | PROVIDERS: PCP Internal Medicine; Visit Provider Internal Medicine | DX: R19.8 Other specified symptoms and signs involving the digestive system and abdomen (principal); J45.20 Mild intermittent asthma, uncomplicated; E78.5 Hyperlipidemia, unspecified; R01.1 Cardiac murmur, unspecified | CPT/HCPCS: 96160 ==

== ENCOUNTER 2025-06-25 08:53 | Outpatient (REF) | payer OTHER, SELFPAY ==
--- OUTSIDE RECORDS SUMMARY | 2025-06-25 09:17 | XMS_ITS | Clinical Summary ---
Author Organization [facility] Address [address] [place] [id number] Phone Care Team Providers Care Yard Caller Name Role Phone Kaye Matias MD Primary Care Provider [phone] Allergies No known active allergies Medications No [...] is recommended in 1 year. Mammo Location: [facility], [address] [place] [address] -------- FINAL REPORT -------- Dictated By: Orestes Cole Dictated Date: 03/08/2025 08:02 ET Assigned Physician: Orestes Cole Reviewed and Electronically Signed By: Orestes Cole Signed Date: 03/08/2025 08:06 ET Workstation ID: [id number] Transcribed By: Self Edit Transcribed Date: 03/08/2025 08:02 ET Narrative 03/08/2025 8:06 AM EDT CLINICAL: The patient is a 59 years Female presenting for routine screening mammography. COMPARISON: Most recently 03/02/2024 and most remotely 06/08/2018. TECHNIQUE: Full-field digital mammography of the breasts bilaterally consisting of tomosynthesis in MLO and CC projection is performed in the [employer]se 2000-D unit. Computer aided detection utilizing the QRGLD system was utilized. FINDINGS: The breasts are [...] MLO and CC projection is performed in the[employer]mira Cosmetics[employer]he 2000-D unit. Computer aided detection utilizing the iovoxystem was utilized. FINDINGS: The breasts are again [...] is recommended in 1 year. Mammo Location: [facility], [address] [place] [id number] -------- FINAL REPORT -------- Dictated By: Orestes Cole Dictated Date: 03/08/2025 08:02 ET Assigned Physician: Orestes Cole Reviewed and Electronically Signed By: Orestes Cole Signed Date: 03/08/2025 08:06 ET Workstation ID: [id number] Transcribed By: Self Edit Transcribed Date: 03/08/2025 08:02 ET us Kaye Matias MD IMG BI PROCEDURES Final Result * (ABNORMAL) Comprehensive metabolic panel (02/17/2025 8:35 AM EDT) Sodium 144 135 - 145 mmol/L LAB CHEMISTRY METHOD 02/17/2025 9:13 AM EDT [facility] Potassium 3.7 3.5 - 5.1 mmol/L LAB CHEMISTRY METHOD 02/17/2025 9:13 AM EDT [facility] Chloride 109(H) 98 - 107 mmol/L LAB CHEMISTRY METHOD 02/17/2025 9:13 AM [facility] CO2 24 24 - 32 mmol/L LAB CHEMISTRY METHOD 02/17/2025 9:13 AM [facility] Anion Gap 11 5 - 14 LAB CHEMISTRY METHOD 02/17/2025 9:13 AM [facility] Glucose 95 70 - 199 mg/dL LAB CHEMISTRY METHOD 02/17/2025 9:13 AM [facility] BUN 18(H) 7 - 17 mg/dL LAB CHEMISTRY METHOD 02/17/2025 9:13 AM [facility] Creatinine 0.81 0.50 - 1.00 mg/dL LAB CHEMISTRY METHOD 02/17/2025 9:13 AM [facility] eGFR 83 >=60 mL/min/1. 73m2 LAB CHEMISTRY METHOD 02/17/2025 9:13 AM [facility] Comment:Calculation based on the Chronic Kidney Disease Epidemiology Collaboration (CKD-EPI) equation refit without adjustment for race. BUN/Creatinine Ratio 22.2(H) 12.0 - 20.0 LAB CHEMISTRY METHOD 02/17/2025 9:13 AM [facility] Calcium 9.1 8.4 - 10.2 mg/dL LAB CHEMISTRY METHOD 02/17/2025 9:13 AM [facility] AST (SGOT) 16 5 - 40 unit/L LAB CHEMISTRY METHOD 02/17/2025 9:13 AM [facility] ALT (SGPT) 15 7 - 52 unit/L LAB CHEMISTRY METHOD 02/17/2025 9:13 AM [facility] Alkaline Phosphatase 48 34 - 104 unit/L LAB CHEMISTRY METHOD 02/17/2025 9:13 AM [facility] Total Protein 7.1 6.4 - 8.5 g/dL LAB CHEMISTRY METHOD 02/17/2025 9:13 AM EDT [facility] Albumin 4.0 3.5 - 5.0 g/dL LAB CHEMISTRY METHOD 02/17/2025 9:13 AM EDT [facility] Total Bilirubin 0.3 0.3 - 1.0 mg/dL LAB CHEMISTRY METHOD 02/17/2025 9:13 AM EDT [facility] Blood Venous blood specimen / Unknown Venipuncture / Unknown 02/17/2025 8:35 AM EDT 02/17/2025 8:39 AM EDT us Kamlesh Fields MD LAB BLOOD ORDERABLES Final Resu lt [facility] [address] [place] [address], [place] [phone] from Last 3 Months or Most Recently Relevant to Health Maintenance Insurance [facility] Advance Directives Documents on File Type Date Recorded Patient Robot Technician Expl 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
--- OUTSIDE RECORDS SUMMARY | 2025-06-25 09:17 | XMS_ITS | Patient Health Record ---
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 Problem 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) Active confirmed Plan Of Treatment Pending Test Test Name Order Date 50940, J0702- Neuroma/Injection 02/19/20 13487, J0702- Neuroma/Injection 04/07/20 26465, J0702- Neuroma/Injection 05/05/20 Insurance Providers Payer Name Payer Address Payer Phone Subscriber Number Group Number Insured Name Patient Relationship to Insured Coverage Start Date Coverage End Date [facility] [address] [place] [id number] Jillian Kennedy Self - patient is the insured Medical (General) History Medical History History ICD Code asthma Headaches Lyme disease Measles Mumps Chicken pox Surgical History Surgery Date(Month/Year)
[2025-06-25 09:53] LABS: Leukocytes Stool Qualitative NEGATIVE (NEGATIVE)
[2025-07-02 17:17] LABS: Calprotectin, Fecal <5 mcg/g
== END 2025-06-25 08:54 | disposition home or self-care (01) ==
LOC: HO.LNP 08:53
PROVIDERS: Visit Provider Internal Medicine
DX: R19.8 Other specified symptoms and signs involving the digestive system and abdomen (principal)
CPT/HCPCS: 82656; 83993; 87177; 87209; 87338; 89055

== ENCOUNTER 2025-09-30 08:53 | Outpatient (AMB) | payer OTHER, SELFPAY ==
--- NOTE | 2025-09-30 09:02 | MHC.OFFVIS ---
Vital Signs 09/30/25 09:06 Height 5 ft 8 in Weight 180 lb BMI 27.4 BP 134/67 Blood Pressure Location Lt brachial Position Sitting Pulse 80 Intake Visit Reasons: GI , Other spec. symptoms r/s 09/09/25 Intake Note: Patient new consult ofr change of BM. Patient have hx of Colitis and diverticulitis and she denies any GI issues for today visit. Garment Supervisor Required: No Accompanied by: Self / Same As Patient Allergies No Known Allergies Allergy (Verified 09/30/25 09:01) HPI Comments Details: The patient is a 60-year-old female presenting with increased bowel movement frequency. Symptoms began early in the year after an episode of diverticulitis (seen at [facility]) and have been progressive since then. She was also seen in [place] a few months later for similar sx and that time was given a diagnosis of left-sided colitis. Presently, bowel movements average six times daily compared to baseline of two, without alteration in stool form. Increased bloating is noted without cramping. Prior colonoscopy (Dr Vines) in 2017 was unremarkable. She also had stool tests done through PCP which are normal for fecal vee, stool leuk and elastase. --- Pt was informed and consented to the use of ambient scribe for this encounter. 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 Current occupational exposures/hazards: No Cognitive needs: No Hearing needs: No Vision needs: No Review of Systems Const All systems reviewed & are unremarkable except as noted in HPI and below Physical Exam Exam Exam: No apparent distress Nonicteric Abdomen soft, nondistended Alert and oriented x3, normal gait Vital Signs: Last Vital Signs Pulse 80 09/30/25 09:06 BP 134/67 09/30/25 09:06 BMI result Body Mass Index 27.4 Assessment & Plan Assessment & Plan (1) Change in bowel movement: Code(s): R19.8 - Other specified symptoms and signs involving the digestive system and abdomen Category: Medical (2) Bloating: Code(s): R14.0 - Abdominal distension (gaseous) Category: Medical (3) History of diverticulitis: Code(s): Z87.19 - Personal history of other diseases of the digestive system Category: Medical Plan Needs a colo anyway post diverticulitis however given new onset of sx of abd bloating and change in bowel frequency will also add upper endoscopy for small bowel biopsy. Ddx include smoldering diveticulitis, malabsorption such as celiac or SIBO, microscopic colitis. Plan: - EGD and colo to be booked - PEG prep Rxed and instructions reviewed - celiac serology ordered Follow up after scopes Orders: Orders Transglutaminase IgA Today R14.0 - Abdominal distension (gaseous) Immunoglobulin A Today R14.0 - Abdominal distension (gaseous) Complete Blood Count Auto Diff Today R14.0 - Abdominal distension (gaseous) Referrals GI Procedure Notification R19.8 - Other specified symptoms and signs involving the digestive system and abdomen Medications: New peg 3350-electrolytes 236-22.74-6.74 -5.86 gram (Golytely) as per split prep instructions, until fecal effluent is clear 240 mL PO Q10M 4,000 mL 0RF colonoscopy Coding Level of Care Code New Pt Level 4 (84759) Diagnoses Change in bowel movement R19.8 Bloating R14.0 History of diverticulitis Z87.19
[2025-09-30 09:06] VITALS: BP 134/67; PULSE 80; BMI 27.4
== END 2025-09-30 10:04 | disposition home or self-care (01) ==
LOC: HO.HGI 08:54
PROVIDERS: PCP Internal Medicine; Visit Provider Internal Medicine
DX: R19.8 Other specified symptoms and signs involving the digestive system and abdomen (principal); R14.0 Abdominal distension (gaseous); Z87.19 Personal history of other diseases of the digestive system
CPT/HCPCS: 99204

== ENCOUNTER 2025-09-30 08:53 | Outpatient (REF) | payer OTHER, SELFPAY ==
[2025-09-30 09:42] LABS: MANUAL DIFF FLAG NO
[2025-09-30 10:00] LABS: Hematocrit 41.9 % (37.0-47.0); Hemoglobin 13.1 g/dl (12.0-16.0); Imm Gran Abs Auto 0.01 X10*3/uL (0.00-0.03); Imm Gran Pct Auto 0.2 % (0.0-0.4); Lymphocytes Absolute Auto 1.6 X10*3/uL (1.2-4.9); Mean Corpuscular HGB Conc 31.3 g/dl (31.0-35.0); Mean Corpuscular Hemoglobin 26.6 pg (27.0-33.0); Mean Corpuscular Volume 85.2 fL (80.0-98.0); NRBC Abs Auto 0.000 X10*3/uL (0.0-0.012); NRBC Pct Auto 0.0 /100WBC (0.0-0.2); Platelet Count 263 X10*3/uL (160-400); Red Blood Count 4.92 X10*6/uL (4.20-5.50); White Blood Count 4.9 X10*3/uL (4.8-10.8)
[2025-10-01 03:48] LABS: Immunoglobulin A 380 mg/dL (70-320)
== END 2025-09-30 08:54 | disposition home or self-care (01) ==
LOC: HO.LAB 08:53
PROVIDERS: PCP Internal Medicine; Visit Provider Internal Medicine
DX: R14.0 Abdominal distension (gaseous) (principal); Z87.19 Personal history of other diseases of the digestive system
CPT/HCPCS: 36415; 82784; 85025; 86364

== ENCOUNTER 2025-11-11 08:24 | Outpatient (AMB) | payer OTHER, SELFPAY ==
--- NOTE | 2025-11-11 08:27 | MHC.PC.OV ---
Vital Signs 11/11/25 08:29 11/11/25 08:32 Height 5 ft 8 in BMI Reason not done Patient refused/unable BP 135/94 H 153/82 H Blood Pressure Location Lt brachial Lt brachial Position Sitting Sitting Respiration 14 Pulse 82 Pulse Source Pulse Oximeter Temp 97.8 F Temp Source Oral Pulse Oximetry (%) 96 Oxygen Delivery Method Room Air Intake Visit Reasons: cpe Intake Note: Physical. Sore throat, stuffy nose started yesterday. Headache today. Grandchildren have the flu. 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 Patient went the ER in February for abdominal pain. [place] like prior episode of diverticulitis she had in the fall 2023. She was told she had a colitis at that time. Acute pain resolved however she has continued since that time to have a notable change in bowel movements. She is having bloating, increased bowel movements, now up to six times daily. It is non watery non bloody. No fevers or weight loss. CV: HLD. Echo 2024. Had Coronary CT. Denies chest pain. Denies exertional dyspnea Osteoporosis: On fosamax Headaches: Rare use of imitrex Asthma: well controlled. rare albuterol. She has URI at present. 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 NAD EYES: EOMI. Anicteric. HENT: Moist mucous membranes. No scleral icterus. No cervical lymphadenopathy. LUNGS: Clear to auscultation bilaterally. CARDIOVASCULAR: Regular rate and rhythm. + murmur. No JVD. ABDOMEN: Soft, mild diffuse ttp +bs EXTREMITIES: No edema. Non-tender. SKIN: No rashes or lesions. Warm. NEUROLOGIC: No focal neurological deficits. CN II-XII grossly intact PSYCHIATRIC: Cooperative. 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 Current occupational exposures/hazards: No Cognitive needs: No Hearing needs: No Vision needs: No Questionnaire Thrive Questionnaire Date Thrive assessed: 02/02/25 I am a: Patient What is your living situation today?: I have a steady place to live Within the past 12 months, did the food you bought not last and you didn't have the money to get more?: Never true Within the past 12 months, did you worry whether your food would run out before you got money to buy more?: Never true Do you have trouble paying for medicines?: No Do you have trouble getting transportation to medical appointments?: No Do you have trouble paying your heating and electricity bill?: No Do you have trouble taking care of your child, family member or friend?: No Do you have trouble with day-to-day activities such as bathing, preparing meals, shopping, managing finances, etc.?: No Are you currently unemployed and looking for a job?: No Are you interested in more education?: No Currently or been in a relationship where the following occur: No concerns reported THRIVE Score: 0 AUDIT C Alcohol Use Questionnaire (AUDIT-C) 1. How often do you have a drink containing alcohol?: Monthly or less 2. How many drinks containing alcohol do you have on a typical day when you are drinking?: 1 or 2 3. How often do you have six or more drinks on one occasion?: Never Total Score: 1 MELY-7 AMB Questionnaire MELY-7 Date MELY - 7 assessed: 02/05/25 Source: Developed by Drs. Shahid Lindquist, Priya ReisRy and colleagues, with an educational gisele from [employer]. Physical exam (Primary Care) Vital Signs: Last Vital Signs Temp 97.8 F 11/11/25 08:29 Pulse 82 11/11/25 08:29 Resp 14 11/11/25 08:29 BP 153/82 H 11/11/25 08:32 Pulse Ox 96 11/11/25 08:29 Oxygen Delivery Method Room Air 11/11/25 08:29 Tobacco/Smoking Status: Tobacco use Status Tobacco use date assessed 11/11/25 11/11/25 08:34 Patient Tobacco Use Status Never used Tobacco 11/11/25 08:34 e-Cigarette/Vaping Use Never Used 11/11/25 08:34 Thrive Assessment: Date of Thrive Assessment Date Thrive assessed 02/02/25 11/11/25 08:34 Currently or been in a relationship where the following occur: No concerns reported Coding Level of Care Code Est Pt Prev Care 40-64y(14436) Diagnoses Physical exam Z00.00 Hyperlipidemia, unspecified hyperlipidemia type E78.5 Hyperlipidemia type: unspecified History of diverticulitis Z87.19 Mild intermittent asthma without complication J45.20 Asthma complication type: uncomplicated Viral upper respiratory tract infection J06.9 URI type: unspecified viral URI Assessment & Plan Assessment & Plan (1) Physical exam: Code(s): Z00.00 - Encounter for general adult medical examination without abnormal findings (2) Hyperlipidemia: Code(s): E78.5 - Hyperlipidemia, unspecified Category: Medical Qualifiers: Hyperlipidemia type: unspecified Qualified Code(s): E78.5 - Hyperlipidemia, unspecified (3) History of diverticulitis: Code(s): Z87.19 - Personal history of other diseases of the digestive system Category: Medical (4) Mild intermittent asthma: Code(s): J45.20 - Mild intermittent asthma, uncomplicated Category: Medical Qualifiers: Asthma complication type: uncomplicated Qualified Code(s): J45.20 - Mild intermittent asthma, uncomplicated (5) URI (upper respiratory infection): Code(s): J06.9 - Acute upper respiratory infection, unspecified Category: Medical Qualifiers: URI type: unspecified viral URI Qualified Code(s): J06.9 - Acute upper respiratory infection, unspecified Plan 60 y/o for physical exam Interval history reviewed Preventive measures up to date Migraines are stable Osteoporosis-stable on fosamax. 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 Panel Today E78.5 - Hyperlipidemia, unspecified, J06.9 - Acute upper respiratory infection, unspecified, R01.1 - Cardiac murmur, unspecified, R19.8 - Other specified symptoms and signs involving the digestive system and abdomen TSH reflex Free T4 Today E78.5 - Hyperlipidemia, unspecified, J06.9 - Acute upper respiratory infection, unspecified, R01.1 - Cardiac murmur, unspecified, R19.8 - Other specified symptoms and signs involving the digestive system and abdomen Complete Blood Count Auto Diff Today E78.5 - Hyperlipidemia, unspecified, J06.9 - Acute upper respiratory infection, unspecified, R01.1 - Cardiac murmur, unspecified, R19.8 - Other specified symptoms and signs involving the digestive system and abdomen Lipid Panel Today E78.5 - Hyperlipidemia, unspecified, J06.9 - Acute upper respiratory infection, unspecified, R01.1 - Cardiac murmur, unspecified, R19.8 - Other specified symptoms and signs involving the digestive system and abdomen Medications: New oseltamivir (Tamiflu) 75 mg PO BID 10 caps 0RF 5 days
--- OUTSIDE RECORDS SUMMARY | 2025-11-11 08:27 | XMS_ITS | Clinical Summary ---
Author Organization [facility] [facility] Address [address] [place] [address] Care Team Providers Care Mental Health Tech Name Role Phone Unavailable Primary Care Provider Unavailabl e Social History Tobacco Use Types Packs/Day Years Used Date Smoking Tobacco: Never Assessed Comments Unknown Sex and Gender Information Value Date Recorded Sex Assigned at Not on file Legal Sex Female 10:23 PM EST Gender Identity Not on file Sexual Orientation Not on file Plan of Treatment Not on file Medical Devices [place] [id number] [address] [place] [id number]
--- OUTSIDE RECORDS SUMMARY | 2025-11-11 08:28 | XMS_ITS | Patient Health Record ---
Author Organization [facility] Address [address] [place] [address] Care Team Providers Care Quality Technician Name Role Phone EDITH NAVARRO md Primary Care Provider EDITH Bolanos Unavailable [phone] Allergies No Known Allergies Reason For Referral No Information Medications Medication SIG (Take, Route, Frequency, Duration) Notes Start Date End Date Status Imitrex 100 MG Tablet 1 tab(s) orally once PRN Active PHYSICAL THERAPY cervical and thoracic back pain 2-3x/wk for 6 weeks *Please review for potential replacement for e-prescription and drug interaction check* 08/19/2021 Active PRO AIR 90 MCG/INH AEROSOL 2 PUFF(S) INHALED EVERY 6 HOURS; Duration: 30 DAY(S) *Please review for potential replacement for e-prescription and drug interaction check* Active Multivitamin 1 TAB ONCE DAILY NAME ONLY Conversion from [facility] Review and pick correct strength-formulatio n from [employer] options. If intended option is not shown, discontinue and re-order from Quick Search. Active FLEXERIL 10MG TABLET 1/2-1 TAB ORAL NIGHTLY PRN PAIN; Duration: 30 DAY(S) *Please review for potential replacement for e-prescription and drug interaction check* Active Vitamin D 50 MCG (1999 UT) Capsule 1 orally once a day Active Social History Social History Additional Details Category Social Info Options Details General Occupation: [employer] dmin asbestos exposure: no Past year's travels: [place] [id number] 05/2021 alcohol use: yes x3 a week drug use: no Hobbies/Exercise habits: Walks D og 3 miles daily Coffee/Tea/Soda: yes 1 cup of coffee a day, tea only when sick, no soda Marital Status experience no Living with Alone, 1 dog: Co oper Pets 1 dog smokers in household no Never Smoke r Section Notes: Last Pap: 2019 - normal- Dr. Yash [facility] Last Mammo: 2019 - normal - [facility] Last Colonscopy: 2018- normal - 10Y plan - [facility] Problems Problem Type SNOMED Code ICD Code Onset Dates Problem Status W/U Status Risk Notes Problem Vitamin D deficiency (24993532) Vitamin D deficiency (E55.9) Active confirmed Plan Of Treatment Pending Test Test Name Order Date XR Cervical Spine with Flexion and Exten vik 08/19/2021 XR Thoracic / Lumbar Spine 08/19/2021 Insurance Providers Payer Name Payer Address Payer Phone Subscriber Number Group Number Insured Name Patient Relationship to Insured Coverage Start Date Coverage End Date [facility] IN[employer]AN [facility] [address] [place] [address] [id number] ELENA STEWART Self - patient is the insured Medical (General) History Medical History History ICD Code Ashtma Migraines Kidney Stones Surgical History Surgery Date(Month/Year) kidney stones wisdom teeth Hospitalization History Reason Date(Month/Year) 2 pregnancies, 2 childbirths
--- OUTSIDE RECORDS SUMMARY | 2025-11-11 08:28 | XMS_ITS | Patient Health Record ---
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 Problem 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) Active confirmed Plan Of Treatment Pending Test Test Name Order Date 10482, J0702- Neuroma/Injection 02/19/20 67145, J0702- Neuroma/Injection 04/07/20 92603, J0702- Neuroma/Injection 05/05/20 Insurance Providers Payer Name Payer Address Payer Phone Subscriber Number Group Number Insured Name Patient Relationship to Insured Coverage Start Date Coverage End Date [facility] [address] [place] [phone] [id number] Jillian Kennedy Self - patient is the insured Medical (General) History Medical History History ICD Code asthma Headaches Lyme disease Measles Mumps Chicken pox Surgical History Surgery Date(Month/Year)
--- OUTSIDE RECORDS SUMMARY | 2025-11-11 08:28 | XMS_ITS | Clinical Summary ---
Author Organization [facility] Address [address] [place] [id number] Phone Care Team Providers Care Health Education Aide Name Role Phone Kaye Matias MD Primary Care Provider [phone] Allergies No known active allergies Medications No [...] 1982 Cervical Cancer Screening: Pap Smear 1984 RSV Immunization Adult Patients (1 - Risk 50-74 years 1-dose series) 2013 Cholesterol Screening (Lipid Panel) 10/27/2022 HIV Screening 10/27/2022 Hepatitis C Screening 10/27/2022 Social Influencers of Health Screening 10/27/2022 Depression Screening 11/14/2024 COVID-19 Vaccine ( season) 2025 11/02/2023, 08/10/2021, 12/02/2020, Additional history exists Influenza Vaccine (#1) 2025 , 08/18/2022, 09/01/2021, Additional history exists Hypertension/CHF/CAD Annual BMP Blood Test 02/17/2026 02/17/2025 Breast Cancer Screening 03/08/2027 03/08/20, 03/02/2024, 10/27/2022, Additional history exists DTaP,Tdap,and Td Vaccines (2 - Td or Tdap) 03/08/2033 03/08/2023 Colorectal Cancer Screening: Colonoscopy 07/10/2035 07/10/2025 Zoster Vaccines Completed 09/02/2022, 03/27/2022 HIB Vaccines [...] Procedure Name Priority Date/Time Associated Diagnosis Comments HP LINK COLONOSCOPY Routine 07/10/2025 3 :49 PM EDT MG MAMMO DIGITAL SCREENING W LAMONT BILAT Routine 03/08/2025 7:41 AM EDT Encounter for screening mammogram for malignant neoplasm of breast COMPREHENSIVE METABOLIC PANEL STAT 02/17/2025 8:35 AM EDT from Last 3 Months or Most Recently Relevant to Health Maintenance Results * HM Colonoscopy (07/10/2025 3:49 PM EDT) us Historical Provider MD HEALTH MAINTENANCE Final Result * MG Mammo Digital Screening w Lamont [...] is recommended in 1 year. Mammo Location: [facility], [address] [place] [id number] -------- FINAL REPORT -------- Dictated By: Orestes Cole Dictated Date: 03/08/2025 08:02 ET Assigned Physician: Orestes Cole Reviewed and Electronically Signed By: Orestes Cole Signed Date: 03/08/2025 08:06 ET Workstation ID: [id number] Transcribed By: Self Edit Transcribed Date: 03/08/2025 08:02 ET Narrative 03/08/2025 8:06 AM EDT CLINICAL: The patient is a 59 years Female presenting for routine screening mammography. COMPARISON: Most recently 03/02/2024 and most remotely 06/08/2018. TECHNIQUE: Full-field digital mammography of the breasts bilaterally consisting of tomosynthesis in MLO and CC projection is performed in the [employer] 2000-D unit. Computer aided detection utilizing the iCAD system was utilized. FINDINGS: The breasts are [...] MLO and CC projection is performed in the[employer] Sen[employer]he 2000-D unit. Computer aided detection utilizing the iCADsystem was utilized. FINDINGS: The breasts are again [...] is recommended in 1 year. Mammo Location: [facility], [address] [place] [id number] -------- FINAL REPORT -------- Dictated By: Orestes Cole Dictated Date: 03/08/2025 08:02 ET Assigned Physician: Orestes Cole Reviewed and Electronically Signed By: Orestes Cole Signed Date: 03/08/2025 08:06 ET Workstation ID: [id number] Transcribed By: Self Edit Transcribed Date: 03/08/2025 08:02 ET us Kaye Matias MD IMG BI PROCEDURES Final Result * (ABNORMAL) Comprehensive metabolic panel (02/17/2025 8:35 AM EDT) Sodium 144 135 - 145 mmol/L LAB CHEMISTRY METHOD 02/17/2025 9:13 AM [facility] Potassium 3.7 3.5 - 5.1 mmol/L LAB CHEMISTRY METHOD 02/17/2025 9:13 AM [facility] Chloride 109(H) 98 - 107 mmol/L LAB CHEMISTRY METHOD 02/17/2025 9:13 AM [facility] CO2 24 24 - 32 mmol/L LAB CHEMISTRY METHOD 02/17/2025 9:13 AM [facility] Anion Gap 11 5 - 14 LAB CHEMISTRY METHOD 02/17/2025 9:13 AM [facility] Glucose 95 70 - 199 mg/dL LAB CHEMISTRY METHOD 02/17/2025 9:13 AM [facility] BUN 18(H) 7 - 17 mg/dL LAB CHEMISTRY METHOD 02/17/2025 9:13 AM [facility] Creatinine 0.81 0.50 - 1.00 mg/dL LAB CHEMISTRY METHOD 02/17/2025 9:13 AM [facility] eGFR 83 >=60 mL/min/1. 73m2 LAB CHEMISTRY METHOD 02/17/2025 9:13 AM [facility] Comment:Calculation based on the Chronic Kidney Disease Epidemiology Collaboration (CKD-EPI) equation refit without adjustment for race. BUN/Creatinine Ratio 22.2(H) 12.0 - 20.0 LAB CHEMISTRY METHOD 02/17/2025 9:13 AM [facility] Calcium 9.1 8.4 - 10.2 mg/dL LAB CHEMISTRY METHOD 02/17/2025 9:13 AM [facility] AST (SGOT) 16 5 - 40 unit/L LAB CHEMISTRY METHOD 02/17/2025 9:13 AM [facility] ALT (SGPT) 15 7 - 52 unit/L LAB CHEMISTRY METHOD 02/17/2025 9:13 AM EDT [facility] Alkaline Phosphatase 48 34 - 104 unit/L LAB CHEMISTRY METHOD 02/17/2025 9:13 AM EDT [facility] Total Protein 7.1 6.4 - 8.5 g/dL LAB CHEMISTRY METHOD 02/17/2025 9:13 AM EDT [facility] Albumin 4.0 3.5 - 5.0 g/dL LAB CHEMISTRY METHOD 02/17/2025 9:13 AM EDT [facility] Total Bilirubin 0.3 0.3 - 1.0 mg/dL LAB CHEMISTRY METHOD 02/17/2025 9:13 AM EDT [facility] Blood Venous blood specimen / Unknown Venipuncture / Unknown 02/17/2025 8:35 AM EDT 02/17/2025 8:39 AM EDT us Kamlesh Fields MD LAB BLOOD ORDERABLES Final Resu lt [facility] [address] [place] [address], [place] [phone] from Last 3 Months or Most Recently Relevant to [place] [id number] [facility] [place] [id number] Advance Directives Documents on File Type Date Recorded 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
[2025-11-11 08:29] VITALS: BP 135/94; PULSE 82; RESP 14; TEMP 36.6; O2SAT 96
[2025-11-11 08:32] VITALS: BP 153/82
== END 2025-11-11 08:59 | disposition home or self-care (01) ==
LOC: HO.HMCFM 08:25
PROVIDERS: PCP Internal Medicine; Visit Provider Internal Medicine
DX: Z00.00 Encounter for general adult medical examination without abnormal findings (principal); E78.5 Hyperlipidemia, unspecified; Z87.19 Personal history of other diseases of the digestive system; J45.20 Mild intermittent asthma, uncomplicated; J06.9 Acute upper respiratory infection, unspecified

== ENCOUNTER 2025-11-11 08:24 | Outpatient (REF) | payer OTHER, SELFPAY ==
[2025-11-11 12:00] LABS: Resp Syncy Virus RNA Qual PCR NEGATIVE (Negative); SARS COV2 PCR INHOUSE NEGATIVE (Negative)
== END 2025-11-11 08:25 | disposition home or self-care (01) ==
LOC: HO.LNP 08:24
PROVIDERS: PCP Internal Medicine; Visit Provider Internal Medicine
DX: J06.9 Acute upper respiratory infection, unspecified (principal)
CPT/HCPCS: 87637